=== PATIENT | male | born 1985 | race Caucasian/White ===

== ENCOUNTER 2018-07-09 13:07 | Emergency (ER) | payer OTHER ==
[~2018-07-09] VITALS: Ht 165.1 cm; Wt 68.0 kg
[2018-07-09] MEDS ORDERED: NORFLEX100 MG PO (14:21)
[2018-07-09] MEDS ORDERED: NAPROSYN500 MG PO (14:21)
[2018-07-09 14:36] VITALS: BP 114/74
== END 2018-07-09 14:38 | disposition home or self-care (01) ==
LOC: ER 13:07
DX: M43.6 Torticollis (principal); M62.838 Other muscle spasm; J45.909 Unspecified asthma, uncomplicated